=== PATIENT | female | born 1960 | race Caucasian/White ===

== ENCOUNTER 2019-07-18 11:01 | Emergency (ER) | payer MEDICAID, MEDICARE ==
[~2019-07-18] VITALS: Ht 170.2 cm; Wt 72.6 kg
[~2019-07-18 11:01] MED LIST: FLUC200T PO; HYDR-1189 PO; LISI-600 PO; NOR10 PO; PRO40 PO
[2019-07-18 11:08] VITALS: BP_SYST 150
[2019-07-18] MEDS ORDERED: NS 500 ML IV ONE (11:45)
[2019-07-18 12:18] LABS: BASOPHILS # (AUTO) 0.1 K/uL (0.0-0.2); BASOPHILS % (AUTO) 1.2 % (0.0-2.0); EOSINOPHILS # (AUTO) 0.2 K/uL (0.0-0.4); EOSINOPHILS % (AUTO) 2.5 % (0.0-4.0); HEMATOCRIT 44.8 % (36-48); HEMOGLOBIN 15.3 g/dL (12.0-16.0); LYMPHOCYTES # (AUTO) 3.6 K/uL (1.0-5.5); MEAN CORPUSCULAR HEMOGLOBIN 31 pg (27-31); MEAN CORPUSCULAR HGB CONC 34 % (32-36); MEAN CORPUSCULAR VOLUME 92 fL (79.0-98.0); MONOCYTES # (AUTO) 0.7 K/uL (0.0-1.0); MONOCYTES % (AUTO) 6.9 % (1.7-9.3); NEUTROPHILS # (AUTO) 5.4 K/uL (1.8-7.7); NEUTROPHILS % (AUTO) 53.4 % (40.0-70.0); PLATELET COUNT (AUTO) 272 K/uL (130-430); RED BLOOD CELL COUNT(AUTO) 4.88 MIL/uL (4.2-6.2)
[2019-07-18 12:32] LABS: CALCIUM 8.6 mg/dL (8.4-11.0); CREATININE 0.78 mg/dL (0.55-1.30); POTASSIUM 4.2 mmol/L (3.5-5.1)
[2019-07-18 12:35] LABS: PROTHROMBIN TIME 10.2 SECS (9.5-12.5)
[2019-07-18 12:37] LABS: ALBUMIN 3.5 g/dL (3.4-4.8); TOTAL BILIRUBIN 0.4 mg/dL (0.0-1.0)
[2019-07-18 14:34] LABS: BILIRUBIN,URINE NEGATIVE (NEGATIVE); BLOOD, URINE NEGATIVE (NEGATIVE); CLARITY/URINE CLEAR (CLEAR); COLOR,URINE YELLOW (YELLOW); GLUCOSE,URINE NEGATIVE (NEGATIVE); KETONES,URINE NEGATIVE (NEGATIVE); LEUKOCYTE ESTERASE ,URINE NEGATIVE (NEGATIVE); NITRITE, URINE NEGATIVE (NEGATIVE); PH,URINE 5.5 (5.0-8.0); PROTEIN URINE NEGATIVE (NEGATIVE); UROBILINOGEN,URINE 0.2 (0.2-1.0)
[2019-07-18 15:05] VITALS: BP_SYST 138
== END 2019-07-18 15:05 | disposition home or self-care (01) ==
LOC: SED 11:01
DX: E86.0 Dehydration (principal); I10 Essential (primary) hypertension; Z88.5 Allergy status to narcotic agent; Z79.899 Other long term (current) drug therapy
CPT/HCPCS: 36415; 71045; 80053; 81003; 84484; 85025; 85610; 85730; 87040; 93005; 99284; J7040

== ENCOUNTER 2019-07-25 08:17 | Emergency (ER) | payer MEDICAID ==
[~2019-07-25] VITALS: Ht 170.2 cm; Wt 72.6 kg
[2019-07-25 08:17] VITALS: BP_SYST 150
--- NOTE | 2019-07-25 08:18 | NUR ---
BROUGHT BACK TO BED #7 AND TRIAGED. REPORT GIVEN TO BOZENA
--- NOTE | 2019-07-25 08:30 | NUR ---
Patient presented to ER with C/O dizziness and diarrhea. Patient A&Ox4, afebrile, ambulatory to ER, skin pink and warm, cap refill <3, denies pain, denies Nausea & denies vomiting, diarrhea x3 weeks. Patient states she has had diarrhea x 3 weeks. Patient states she took OTC Immodium; caused constipation x1day then diarrhea resumed. Patient was seen in [facility] ER last Tuesday and at [facility] ER last Tuesday for diarrhea. Patient states she has a hx of HTN and substance abuse tx.
--- NOTE | 2019-07-25 09:00 | NUR ---
ER Dr. Panda at bedside examining patient.
[2019-07-25] MEDS ORDERED: NACL 0.9% 1,000 ML IV ONE (09:15)
--- NOTE | 2019-07-25 09:26 | NUR ---
TAKEN TO RADIOLOGY AMBULATORY
--- NOTE | 2019-07-25 09:30 | NUR ---
# 20 gauge angiocath placed to Left AC. Use of asceptic technique. Opsite placed over site. Blood return noted. Blood for lab drawn from site. Flushed with 10 cc of normal saline. No evidence of infiltration noted. Patient tolerated well. Medicated per MD orders. IVF infusing with no s/s of infiltration at this time. Will cont to monitor
[2019-07-25 10:09] LABS: BASOPHILS # (AUTO) 0.1 K/uL (0.0-0.2); BASOPHILS % (AUTO) 0.8 % (0.0-2.0); EOSINOPHILS # (AUTO) 0.2 K/uL (0.0-0.4); EOSINOPHILS % (AUTO) 1.9 % (0.0-4.0); HEMATOCRIT 45.6 % (36-48); HEMOGLOBIN 15.9 g/dL (12.0-16.0); LYMPHOCYTES # (AUTO) 3.3 K/uL (1.0-5.5); LYMPHOCYTES % (AUTO) 31.1 % (20.5-51.5); MEAN CORPUSCULAR HEMOGLOBIN 32 pg (27-31); MEAN CORPUSCULAR HGB CONC 35 % (32-36); MEAN CORPUSCULAR VOLUME 93 fL (79.0-98.0); MONOCYTES # (AUTO) 0.7 K/uL (0.0-1.0); MONOCYTES % (AUTO) 6.9 % (1.7-9.3); NEUTROPHILS # (AUTO) 6.3 K/uL (1.8-7.7); NEUTROPHILS % (AUTO) 59.3 % (40.0-70.0); PLATELET COUNT (AUTO) 248 K/uL (130-430); RED BLOOD CELL COUNT(AUTO) 4.94 MIL/uL (4.2-6.2); RED CELL DISTRIBUTION WIDTH 12.7 % (9.0-15.0); WHITE BLOOD COUNT (AUTO) 10.6 K/uL (4.8-10.8)
[2019-07-25 10:20] LABS: CALCIUM 9.2 mg/dL (8.4-11.0); CREATININE 0.77 mg/dL (0.55-1.30); POTASSIUM 4.5 mmol/L (3.5-5.1)
[2019-07-25 10:25] LABS: ALBUMIN 3.6 g/dL (3.4-4.8); TOTAL BILIRUBIN 0.4 mg/dL (0.0-1.0)
[2019-07-25 11:35] VITALS: BP_SYST 144
--- NOTE | 2019-07-25 11:35 | NUR ---
Patient given written and verbal discharge instructions and verbalizes understanding. ER MD discussed with patient the results and treatment provided. Patient in stable condition. ID arm band removed. Rx of Miralax & mineral oil given. Patient educated on pain management and to follow up with PMD. Pain Scale 0/10. Opportunity for questions provided and answered. Medication side effect fact sheet provided.
== END 2019-07-25 11:35 | disposition home or self-care (01) ==
LOC: SED 08:17
DX: K59.00 Constipation, unspecified (principal); R42 Dizziness and giddiness; R19.7 Diarrhea, unspecified; F17.210 Nicotine dependence, cigarettes, uncomplicated; I10 Essential (primary) hypertension; Z79.899 Other long term (current) drug therapy
CPT/HCPCS: 36415; 71045; 74021; 80053; 85025; 99284

== ENCOUNTER 2019-08-09 08:17 | Emergency (ER) | payer MEDICAID ==
[~2019-08-09] VITALS: Ht 170.2 cm; Wt 72.6 kg
--- NOTE | 2019-08-09 08:23 | NUR ---
Patient to ER bed to gown for evaluation. Side rails up.
[2019-08-09 08:24] VITALS: BP_SYST 134
--- NOTE | 2019-08-09 08:25 | NUR ---
Patient presented to ER with C/O diarrhea X1 month. Patient A&ox4, afebrile, ambulatory to ER, skin pink and warm, denies pain, denies N/V. Patient staes she has had diarrhea X1 month with weakness and x2 [facility] ER visit. Patient states she has hx of HTN
--- NOTE | 2019-08-09 08:45 | NUR ---
ER Dr. Cornelius at bedside examining patient.
[2019-08-09 09:36] VITALS: BP_SYST 144
--- NOTE | 2019-08-09 09:36 | NUR ---
Patient given written and verbal discharge instructions and verbalizes understanding. ER MD discussed with patient the results and treatment provided. Patient in stable condition. ID arm band removed. Rx of Lomotil given. Patient educated on pain management and to follow up with PMD. Pain Scale 0/10 . Opportunity for questions provided and answered.
== END 2019-08-09 09:36 | disposition home or self-care (01) ==
LOC: SED 08:17
DX: K52.9 Noninfective gastroenteritis and colitis, unspecified (principal); I10 Essential (primary) hypertension; F17.290 Nicotine dependence, other tobacco product, uncomplicated; Z88.5 Allergy status to narcotic agent; Z79.899 Other long term (current) drug therapy
CPT/HCPCS: 74018; 99283

== ENCOUNTER 2021-08-16 09:49 | Emergency (ER) | payer MEDICAID, SELFPAY ==
[~2021-08-16] VITALS: Ht 170.2 cm; Wt 52.2 kg
[~2021-08-16 09:49] MED LIST changes: -HYDR-1189 PO; +HYDR-3919 PO; -LISI-600 PO; +LISI20TA30 PO
[2021-08-16 10:15] VITALS: BP_SYST 127
--- NOTE | 2021-08-16 10:21 | NUR ---
TRIAGED IN TENT
--- NOTE | 2021-08-16 10:27 | NUR ---
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 STATES TODAY WOKE UP WITH COUGH, CONGESTIONS, SORE THROAT. PT IS AMBULATORY, EVEN UNLABORED RESPIRATIONS, V/S STABLE
--- NOTE | 2021-08-16 10:30 | NUR ---
ER DR. AYOUB EXAMINING PT
--- NOTE | 2021-08-16 10:35 | NUR ---
COVID SWAB DONE AND SENT TO LAB
--- NOTE | 2021-08-16 10:39 | NUR ---
PORTABLE X-RAY WITH PT
--- NOTE | 2021-08-16 11:50 | NUR ---
Patient given written and verbal discharge instructions and verbalizes understanding. ER MD discussed with patient the results and treatment provided. Patient in stable condition. ID arm band removed. NO Rx given. Patient educated on pain management and to follow up with PMD. Pain Scale 0/10. Opportunity for questions provided and answered. Medication side effect fact sheet provided.
[2021-08-16 12:07] VITALS: BP_SYST 126
== END 2021-08-16 12:07 | disposition home or self-care (01) ==
LOC: SED 09:49
DX: J40 Bronchitis, not specified as acute or chronic (principal); I10 Essential (primary) hypertension; Z88.5 Allergy status to narcotic agent; Z79.899 Other long term (current) drug therapy; Z20.822 Contact with and (suspected) exposure to COVID-19
CPT/HCPCS: 36415; 71045; 99284

== ENCOUNTER 2021-12-15 15:11 | Emergency (ER) | payer MEDICAID, SELFPAY ==
[~2021-12-15] VITALS: Ht 170.2 cm; Wt 81.6 kg
[2021-12-15 15:29] VITALS: BP_SYST 149
--- NOTE | 2021-12-15 17:57 | NUR ---
Patient to ER bed H1 to gown for evaluation. Side rails up.
--- NOTE | 2021-12-15 18:00 | NUR ---
Pt brought by family, A&Ox4, pt presents to ER with R knee pain and swelling after trip and fall, pt states she missed a step , pt skin pink and warm, cap refill <3, VSS .
--- NOTE | 2021-12-15 18:23 | NUR ---
pt. c/o throbbing pain 05/05 to right knee, ice pack applied and order rec'd from Dr. Alvarez for pain meds.
[2021-12-15] MEDS ORDERED: KETOROLAC TROMETHAMINE 60 MG/2 ML VIAL IM ONE (18:30)
--- NOTE | 2021-12-15 20:20 | NUR ---
ER examining patient in the fall way.
[2021-12-15] MEDS ORDERED: HYDROcodone/ACETAMIN 10-325 MG TAB PO ONE (20:30)
--- NOTE | 2021-12-15 21:02 | NUR ---
Pt. got a 20' left knee immobilizer with crutches.
--- NOTE | 2021-12-15 21:31 | NUR ---
Patient given written and verbal discharge instructions and verbalizes understanding. ER MD discussed with patient the results and treatment provided. Patient in stable condition. ID arm band removed. Rx of [place] given. Patient educated on pain management and to follow up with PMD. Pain Scale 4/10. Opportunity for questions provided and answered. Medication side effect fact sheet provided.
[2021-12-15 21:32] VITALS: BP_SYST 138
[2021-12-17] MEDS ORDERED: HYDR-3927 PO (06:14)
== END 2021-12-15 21:32 | disposition home or self-care (01) ==
LOC: SED 15:11
DX: S82.001A Unspecified fracture of right patella, initial encounter for closed fracture (principal); I10 Essential (primary) hypertension; Z88.5 Allergy status to narcotic agent; Z88.8 Allergy status to other drugs, medicaments and biological substances; Z79.899 Other long term (current) drug therapy; W18.39XA Other fall on same level, initial encounter; Y93.89 Activity, other specified; Y92.89 Other specified places as the place of occurrence of the external cause; Y99.8 Other external cause status
CPT/HCPCS: 73564; 96372; 99283; J1885